=== PATIENT | female | born 1985 | race Caucasian/White ===

== ENCOUNTER 2024-10-15 02:49 | Emergency (ER) | payer SELFPAY ==
[2024-10-15] MEDS: Ketorolac 30 MG/ML SDV IVPUSH ONE (03:26)
[2024-10-15] MEDS ORDERED: Acetaminophen 650 MG Tab.ER ONE (03:29)
[2024-10-15] MEDS: Acetaminophen 650 MG Tab.ER PO PRN (03:33)
[2024-10-15] MEDS: cefTRIAXone 1 GM Vial IVPUSH ONE (03:38)
[2024-10-15] MEDS: methylPREDNISolone Sodium Succinate 125 MG/2 ML SDV IVPUSH ONE (03:45)
== END 2024-10-15 04:27 | disposition home or self-care (01) ==
LOC: KA.ED 02:49
DX: H72.91 Unspecified perforation of tympanic membrane, right ear (principal); Z79.899 Other long term (current) drug therapy
CPT/HCPCS: 87070; 96374; 96375; 99283-25; A9270-GY; J0696; J1885; J2919